=== PATIENT | female | born 1955 ===

== ENCOUNTER 2023-12-26 11:14 | Inpatient (IN) | payer MEDICARE, OTHER ==
[~2023-12-26] VITALS: Ht 147.3 cm; Wt 45.4 kg
[2023-12-26] VITALS (11 sets, daily range): BP systolic 121–151; BP diastolic 32–84; PULSE 50–82; RESP 16–19; TEMP 97.7–98.3; O2SAT 94–95
[2023-12-26] MEDS ORDERED: DEXTROSE 50%-WATER 25 GM/50 ML SYRINGE IVP ONE ×2 (11:27→11:30)
[2023-12-26] MEDS: DEXTROSE 50%-WATER 25 GM/50 ML SYRINGE IVP ONE (11:49)
[2023-12-26 11:52] LABS: BASOPHILS % (AUTO) 1.9 % (0.0-2.0); EOSINOPHILS % (AUTO) 4.9 % (1.0-6.0); LYMPHOCYTES # (AUTO) 0.5 K/uL (1.0-4.8); LYMPHOCYTES % (AUTO) 9.5 % (22.0-44.0); MEAN CORPUSCULAR HEMOGLOBIN 34.6 pg (26.0-34.0); MEAN CORPUSCULAR HGB CONC 32.3 G/dL (31.0-37.0); MEAN CORPUSCULAR VOLUME 107 fL (80-100); MONOCYTES # (AUTO) 0.5 K/uL (0.1-1.0); MONOCYTES % (AUTO) 9.3 % (2.0-9.0); NEUTROPHILS # (AUTO) 3.9 K/uL (1.8-7.7); NEUTROPHILS % (AUTO) 74.4 % (40.0-70.0); PLATELET COUNT (AUTO) 132 K/uL (150-450); RED CELL DISTRIBUTION WIDTH 25.7 % (11.5-14.5); WHITE BLOOD COUNT (AUTO) 5.3 K/uL (4.5-11.0)
[2023-12-26 12:03] LABS: HEMATOCRIT 11.8 % (36-46)
[2023-12-26 12:04] LABS: ANION GAP 10 mmol/L (8-16); CALCIUM, TOTAL 7.6 mg/dL (8.8-10.5); CARBON DIOXIDE 28 mmol/L (22-29); CHLORIDE 97 mmol/L (98-107); CREATININE 2.06 mg/dL (0.60-1.30); GLOMERULAR FILTR. RATE CALC 24 mL/min (>60); GLUCOSE,RANDOM 288 mg/dL (70-110); HEMOGLOBIN 3.8 g/dL (12.0-16.0); SODIUM SERUM 135 mmol/L (136-145); UREA NITROGEN, BLOOD 18 mg/dL (7-18)
[2023-12-26 12:05] LABS: INR 1.2 (0.9-1.1); PROTHROMBIN TIME 12.9 SEC (9.4-11.6)
[2023-12-26 12:14] LABS: LACTIC ACID 1.1 mmol/L (0.4-2.0); TROPONIN I-HIGH SENSITIVITY 91 ng/L (<51)
[2023-12-26 12:22] LABS: AMMONIA 6 umol/L (11-32)
[2023-12-26 12:27] LABS: ALANINE AMINOTRANSFERASE 17 U/L (12-78); ALKALINE PHOSPHATASE 100 U/L (46-116); ASPARTATE AMINOTRANSFERASE 28 U/L (15-37); BILIRUBIN,TOTAL 0.8 mg/dL (0.1-1.0); CREATINE KINASE, TOTAL ONLY 116 U/L (26-192); TOTAL PROTEIN, SERUM 5.3 g/dL (6.4-8.2)
[2023-12-26] MEDS ORDERED: ACETAMINOPHEN 325 MG TABLET PO PRN (12:30)
[2023-12-26] MEDS ORDERED: DEXTROSE 50%-WATER 25 GM/50 ML SYRINGE IVP PRN (12:30)
[2023-12-26] MEDS ORDERED: BISACODYL 10 MG RECTAL RECTAL SUPPOSITORY PR PRN (12:30)
[2023-12-26] MEDS ORDERED: INSULIN LISPRO 100 UNITS/ML SQ PRN (12:30)
[2023-12-26] MEDS: PANTOPRAZOLE SODIUM 40 MG/VIAL IVP SCH (12:48)
[2023-12-26 13:22] LABS: RBC MORPHOLOGY COMMENT DIMORPHIC RBC
[2023-12-26 18:51] LABS: GLUCOMETER DEV NAME(LOC) 5N.1D; GLUCOSE,POINT OF CARE 88 MG/DL (70-110)
[2023-12-26 23:56] LABS: GLUCOMETER DEV NAME(LOC) 5S.2D; GLUCOSE,POINT OF CARE 92 MG/DL (70-110)
[2023-12-27] VITALS (14 sets, daily range): BP systolic 135–169; BP diastolic 52–89; PULSE 73–81; RESP 16–18; TEMP 97.6–98.3; O2SAT 93
[2023-12-27 09:10] LABS: BASOPHILS % (AUTO) 1.4 % (0.0-2.0); EOSINOPHILS % (AUTO) 8.3 % (1.0-6.0); HEMATOCRIT 25.3 % (36-46); HEMOGLOBIN 8.4 g/dL (12.0-16.0); LYMPHOCYTES # (AUTO) 0.7 K/uL (1.0-4.8); LYMPHOCYTES % (AUTO) 9.9 % (22.0-44.0); MEAN CORPUSCULAR HEMOGLOBIN 32.2 pg (26.0-34.0); MEAN CORPUSCULAR VOLUME 97 fL (80-100); MONOCYTES # (AUTO) 0.8 K/uL (0.1-1.0); MONOCYTES % (AUTO) 11.2 % (2.0-9.0); NEUTROPHILS % (AUTO) 69.2 % (40.0-70.0); PLATELET COUNT (AUTO) 143 K/uL (150-450); RED CELL DISTRIBUTION WIDTH 23.2 % (11.5-14.5); WHITE BLOOD COUNT (AUTO) 7.2 K/uL (4.5-11.0)
[2023-12-27 09:35] LABS: CALCIUM, TOTAL 8.6 mg/dL (8.8-10.5); CREATININE 4.18 mg/dL (0.60-1.30); POTASSIUM 3.6 mmol/L (3.5-5.1)
[2023-12-27] MEDS ORDERED: SODIUM CHLORIDE 0.9% 2,000 ML ONE (10:21)
[2023-12-27 10:23] LABS: RBC MORPHOLOGY COMMENT DIMORPHIC RBC
[2023-12-27 17:30] LABS: GLUCOMETER DEV NAME(LOC) 5S.2D; GLUCOSE,POINT OF CARE 91 MG/DL (70-110)
== END 2023-12-27 14:50 | disposition home or self-care (01) | DRG 374 ==
LOC: EMS 11:14 → EDH 12:57 → 5N 18:13
PROVIDERS: ADMIT Internal Medicine; ATTEND Internal Medicine
PROC: 30233N1 Transfusion of Nonautologous Red Blood Cells into Peripheral Vein, Percutaneous Approach (ICD-10-PCS; principal; 2023-12-26)
PROC: 5A1D70Z Performance of Urinary Filtration, Intermittent, Less than 6 Hours Per Day (ICD-10-PCS; 2023-12-27)
DX: C18.9 Malignant neoplasm of colon, unspecified (principal); G93.41 Metabolic encephalopathy; N18.6 End stage renal disease; K92.2 Gastrointestinal hemorrhage, unspecified; I12.0 Hypertensive chronic kidney disease with stage 5 chronic kidney disease or end stage renal disease; R64 Cachexia; D63.8 Anemia in other chronic diseases classified elsewhere; E11.22 Type 2 diabetes mellitus with diabetic chronic kidney disease; Z79.4 Long term (current) use of insulin; E87.6 Hypokalemia; Z85.51 Personal history of malignant neoplasm of bladder; Z90.5 Acquired absence of kidney; Z91.041 Radiographic dye allergy status; Z99.2 Dependence on renal dialysis; Z68.20 Body mass index [BMI] 20.0-20.9, adult
CPT/HCPCS: 70450; 71045; 80048; 80053; 82140; 82550; 82962; 83605; 84484; 85025; 85610; 85730; 86850; 86900; 86901; 86923; 87081; 90935; 92610; 93005; 93970; 99285; C9113; J7030; P9016; 36415-L1; 36415-TC